=== PATIENT | male | born 2000 | race Caucasian/White ===

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

== ENCOUNTER 2018-08-10 21:49 | Emergency (ER) | payer MEDICAID, OTHER | END 2018-08-11 01:11 | disposition home or self-care (01) | LOC: ED 21:49 ==

== ENCOUNTER 2019-06-30 11:02 | Emergency (ER) | payer OTHER ==
[~2019-06-30] VITALS: Ht 172.7 cm; Wt 197.3 kg
[2019-06-30 11:16] VITALS: Ht 172.7 cm; Wt 197.3 kg
[2019-06-30 12:16] LABS: BASOPHIL % 0.8 % (0-2); PLATELET COUNT 239 x10^3mcL (130-400); RED CELL DISTRIBUTION WIDTH 13.7 % (11.5-14.5)
[2019-06-30 12:31] LABS: CALCIUM 8.7 mg/dL (8.5-10.1); CARBON DIOXIDE 31.1 mmol/L (21-32); CHLORIDE SERUM 105 mmol/L (98-107); CREATININE SERUM 0.9 mg/dL (0.7-1.3); GFR1 > 60 mL/min; GLUCOSE SERUM 104 mg/dL (74-106); POTASSIUM SERUM 4.1 mmol/L (3.5-5.1); SODIUM SERUM 141 mmol/L (136-145)
[2019-06-30 12:36] LABS: ALBUMIN 3.9 g/dL (3.4-5.0); ALKALINE PHOSPHATASE 69 U/L (46-116); ALT/SGPT 33 U/L (16-63); AST/SGOT 17 U/L (15-37); BILIRUBIN TOTAL 0.5 mg/dL (0.20-1.00); TOTAL PROTEIN, SERUM 7.4 g/dL (6.4-8.2)
[2019-06-30 13:28] VITALS: BP 138/70
== END 2019-06-30 13:28 | disposition home or self-care (01) ==
LOC: ED 11:02
PROVIDERS: Emergency Medicine
DX: K92.0 Hematemesis (principal); J45.909 Unspecified asthma, uncomplicated; I10 Essential (primary) hypertension
CPT/HCPCS: 36415

== ENCOUNTER 2019-10-12 18:23 | Emergency (ER) | payer OTHER ==
[~2019-10-12] VITALS: Ht 172.7 cm; Wt 199.6 kg
[2019-10-12 18:36] VITALS: Ht 172.7 cm; Wt 199.6 kg
[2019-10-12 19:28] LABS: BASOPHIL % 0.4 % (0-2); PLATELET COUNT 210 x10^3mcL (130-400); RED CELL DISTRIBUTION WIDTH 13.6 % (11.5-14.5)
[2019-10-12 19:30] LABS: microscopic required? YES; urine erythrocyte 1+ (NEGATIVE)
[2019-10-12 19:33] LABS: CALCIUM 8.5 mg/dL (8.5-10.1); CARBON DIOXIDE 32.1 mmol/L (21-32); CHLORIDE SERUM 104 mmol/L (98-107); CREATININE SERUM 1.2 mg/dL (0.7-1.3); GFR1 > 60 mL/min; GLUCOSE SERUM 108 mg/dL (74-106); POTASSIUM SERUM 4.2 mmol/L (3.5-5.1); SODIUM SERUM 140 mmol/L (136-145)
[2019-10-12 19:38] LABS: ALBUMIN 3.6 g/dL (3.4-5.0); ALKALINE PHOSPHATASE 70 U/L (46-116); ALT/SGPT 23 U/L (16-63); AMYLASE 40 U/L (25-115); AST/SGOT 14 U/L (15-37); BILIRUBIN TOTAL 0.5 mg/dL (0.20-1.00); LIPASE 93 IU/L (73-393); TOTAL PROTEIN, SERUM 7.1 g/dL (6.4-8.2)
[2019-10-12 20:59] VITALS: BP 142/91
== END 2019-10-12 20:59 | disposition home or self-care (01) ==
LOC: ED 18:23
PROVIDERS: Emergency Medicine
DX: R10.13 Epigastric pain (principal); R11.10 Vomiting, unspecified; N50.812 Left testicular pain; J45.909 Unspecified asthma, uncomplicated; I10 Essential (primary) hypertension
CPT/HCPCS: 36415; J1885